=== PATIENT | female | born 1950 | race Caucasian/White ===

== ENCOUNTER → 2016-05-12 | Outpatient (CLI) | payer OTHER | LOC: MAMO 09:11 | DX: R92.0 Mammographic microcalcification found on diagnostic imaging of breast (principal) | CPT/HCPCS: G0206 ==

== ENCOUNTER → 2020-05-21 | Day surgery (SDC) | payer MEDICARE ==
[~2020-05-21] MED LIST: CALCIUM 600 +1 EAC7 PO; CELEBREX200 MG PO; ECOTRIN81 MG PO; HYDROCHLOROTHIA25 MG PO; MECLIZINE HCL25 MG PO; METOPROLOL TART25 MG PO; MULTIVITAMIN1 EACH PO; PEPCID20 MG PO; SIMVASTATIN20 MG PO
== END | disposition home or self-care (01) ==
LOC: OR 05:58
PROVIDERS: Surgery
PROC: 0DBN8ZX Excision of Sigmoid Colon, Via Natural or Artificial Opening Endoscopic, Diagnostic (ICD-10-PCS; principal; 2020-05-21 07:30)
DX: K51.911 Ulcerative colitis, unspecified with rectal bleeding (principal); K51.914 Ulcerative colitis, unspecified with abscess; K21.9 Gastro-esophageal reflux disease without esophagitis; E78.5 Hyperlipidemia, unspecified; I10 Essential (primary) hypertension; I34.0 Nonrheumatic mitral (valve) insufficiency; M19.90 Unspecified osteoarthritis, unspecified site; Z20.822 Contact with and (suspected) exposure to COVID-19; Z79.82 Long term (current) use of aspirin; Z79.899 Other long term (current) drug therapy
CPT/HCPCS: J2704; J7030

== ENCOUNTER → 2020-07-02 | Outpatient (CLI) | payer MEDICARE | LOC: MAMO 09:22 | DX: Z12.31 Encounter for screening mammogram for malignant neoplasm of breast (principal); Z78.0 Asymptomatic menopausal state | CPT/HCPCS: 77063; 77067 ==